=== PATIENT | male | born 1995 | race Caucasian/White ===

== ENCOUNTER 2021-06-10 07:23 | Outpatient (REF) | payer OTHER, SELFPAY ==
--- NOTE | 2021-06-10 07:33 | ECG_ITS ---
Test Reason : check qtc Blood Pressure : / mmHG Vent. Rate : 096 BPM Atrial Rate : 096 BPM P-R Int : 148 ms QRS Dur : 090 ms QT Int : 344 ms P-R-T Axes : 085 086 070 degrees QTc Int : 434 ms Normal sinus rhythm Normal ECG When compared with ECG of 03-MAR-2018 10:45, No significant change was found Referred By: Samantha Trevino Electronically Signed By:KENIA MOHR
[2021-06-10 07:50] LABS: MANUAL DIFF FLAG NO
[2021-06-10 08:54] LABS: Basophils Percent Auto 0.3 % (0-2); Eosinophils Absolute Auto 0.2 X10*3/uL (0.0-0.4); Eosinophils Percent Auto 2.7 % (0-4); Hematocrit 48.1 % (42.0-52.0); Hemoglobin 16.3 g/dl (14.0-18.0); Imm Gran Abs Auto 0.02 X10*3/uL (0.00-0.03); Imm Gran Pct Auto 0.3 % (0.0-0.4); Lymphocytes Absolute Auto 2.3 X10*3/uL (1.2-4.9); Lymphocytes Percent Auto 33.6 % (20-40); Mean Corpuscular HGB Conc 33.9 g/dl (31.0-36.0); Mean Corpuscular Hemoglobin 29.1 pg (27.0-33.0); Mean Corpuscular Volume 85.9 fL (80.0-98.0); Mean Platelet Volume 10.2 fL (9.4-12.4); Monocytes Absolute Auto 0.4 X10*3/uL (0.1-1.2); Monocytes Percent Auto 5.9 % (2-11); Neutrophils Absolute Auto 3.9 x10*3/uL (2.0-8.3); Neutrophils Percent Auto 57.2 % (45-73); Platelet Count 231 X10*3/uL (160-400); White Blood Count 6.7 X10*3/uL (4.8-10.8)
[2021-06-10 09:18] LABS: Alanine Aminotransferase 47 U/L (0-40); Albumin Level 4.7 g/dL (3.5-5.0); Alkaline Phosphatase 79 U/L (39-117); Anion Gap 10 (12-20); Aspartate Amino Transferase 23 U/L (5-37); Bilirubin Total 0.5 mg/dL (0.0-1.0); Blood Urea Nitrogen 19 mg/dL (9-16); Calcium 9.9 mg/dL (8.4-10.2); Carbon Dioxide 32 mmol/L (22-29); Chloride 103 mmol/L (96-108); Cholesterol 200 mg/dL; Estimated Glomerular Filt Rate > 60; Glucose Fasting 88 mg/dL (60-99); HDL Cholesterol 48 mg/dL; LDL Cholesterol Calculated 141 mg/dl; Potassium 4.1 mmol/L (3.3-5.1); Sodium 141 mmol/L (135-145); Total Protein 7.3 g/dL (6.5-8.0); Triglycerides 56 mg/dL
== END 2021-06-10 07:24 | disposition home or self-care (01) ==
LOC: HO.LAB 07:23
PROVIDERS: PCP Internal Medicine; Visit Provider Internal Medicine
DX: Z00.00 Encounter for general adult medical examination without abnormal findings (principal); F41.1 Generalized anxiety disorder
CPT/HCPCS: 36415; 80053; 80061; 85025; 93005

== ENCOUNTER 2021-08-07 09:08 | Outpatient (REF) | payer OTHER, SELFPAY ==
--- NOTE | ~2021-08-07 | XR_ITS ---
EXAMINATION: XR LUMBOSACRAL SPINE CLINICAL INFORMATION: Low back pain COMPARISON: None TECHNIQUE: Three views of the lumbosacral spine. FINDINGS: There are 5 nonrib-bearing lumbar vertebrae of normal height. No destructive process. No focal disc narrowing or spondylolisthesis. No vertebral compression. The SI joints and visualized sacrum are unremarkable. XR/XR lumbar spine 2-3V IMPRESSION: Unremarkable examination.
== END 2021-08-07 09:09 | disposition home or self-care (01) ==
LOC: HO.US 09:08
PROVIDERS: Visit Provider Internal Medicine
DX: M54.50 Low back pain, unspecified (principal); R74.01 Elevation of levels of liver transaminase levels
CPT/HCPCS: 72100

== ENCOUNTER 2021-08-13 08:39 | Outpatient (REF) | payer OTHER, SELFPAY ==
--- NOTE | ~2021-08-13 | US_ITS ---
EXAMINATION: US COMPLETE ABDOMEN WITH LIVER ELASTOGRAPHY CLINICAL INFORMATION: Elevated liver enzymes COMPARISON: Previous abdominal ultrasound February [address] of the abdomen and pelvis August 2015 TECHNIQUE: Real-time imaging of the abdominal viscera. Noninvasive ultrasound liver fibrosis assessment is performed using Sammie ElastPQ point quantification shear wave elastography (2D-SWE) with a C5-2 MHz transducer. Multiple elastography samples are obtained. FINDINGS: PANCREAS: Not well visualized due to bowel gas ABDOMINAL AORTA: The proximal, middle, and distal aortic segments are normal in caliber. INFERIOR VENA CAVA: Visualized portions are normal. LIVER: Normal. The liver demonstrates normal size, contour and echogenicity. No focal lesion or intrahepatic biliary duct dilatation. The right lobe measures 14 cm in length. The left lobe measures 8.6 cm in length. Portal flow is normal/hepatopedal Shear wave liver elastography median stiffness is 1.6 m/s (reference: normal median stiffness is 1.3 m/s or less). IQR/median stiffness to assess sampling precision is 0.37 (reference: good quality data set is IQR/median stiffness of 0.15 or less). GALLBLADDER: Normal. The gallbladder is physiologically distended without evidence of stones, sludge, polyps, wall thickening or pericholecystic fluid. COMMON BILE DUCT: Normal in caliber measuring 0.3 cm in diameter. RIGHT KIDNEY: Normal. No hydronephrosis. No renal calculi or focal parenchymal lesions. The kidney measures 10.8 cm in maximum dimension. LEFT KIDNEY: Normal. No hydronephrosis. No renal calculi or focal parenchymal lesions. The kidney measures 12.1 cm in maximum dimension. SPLEEN: Normal. The spleen measures 10.7 cm in maximum dimension. There is a 1 cm splenule. FREE FLUID: None. US/US abdomen comp w elastography IMPRESSION: 1. Impression: Normal-appearing liver. Limited visualization of the pancreas. 2. Liver elastography: Limited due to sampling error. REFERENCE: Society of Radiologists in Ultrasound Liver Stiffness Thresholds (2019): LIVER STIFFNESS THRESHOLDS: *Liver Stiffness equal or less than 1.3 m/s: High probability of being normal. *Liver Stiffness less than 1.7 m/s: In the absence of other known clinical signs, rules out compensated advanced chronic liver disease. *Liver Stiffness 1.7-2.1 m/s: Suggestive of compensated advanced chronic liver disease but need further test for confirmation. *Liver Stiffness over 2.1 m/s: Rules in compensated advanced chronic liver disease. *Liver Stiffness over 2.4 m/s: Suggestive of clinically significant portal hypertension. QUALITY OF DATA SET: *IQR/Median value equal or less than 0.15 implies a quality data set. *IQR/Median value over 0.15 implies a poor quality data set. SIGNIFICANT CHANGE FROM PRIOR EXAM: Significant change if liver stiffness measurement is 10% or greater from prior exam. OTHER CONSIDERATIONS: The stage of liver fibrosis may be overestimated in the setting of acute hepatitis, liver inflammation, elevated liver function tests, hepatic vascular congestion, obstructive cholestasis, non-fasting state, and infiltrative diseases such as amyloidosis and lymphoma. In some patients with NAFLD, the liver stiffness thresholds for compensated advanced chronic liver disease may be lower. In causes other than viral hepatitis and NAFLD, liver stiffness thresholds are not well established.
== END 2021-08-13 08:40 | disposition home or self-care (01) ==
LOC: HO.US 08:39
PROVIDERS: Visit Provider Internal Medicine
DX: R74.01 Elevation of levels of liver transaminase levels (principal)
CPT/HCPCS: 76705; 76981

== ENCOUNTER → 2021-09-04 07:06 | Outpatient (BNVA) | payer OTHER, SELFPAY | PROVIDERS: PCP Internal Medicine; Referring Provider Internal Medicine; Visit Provider Nurse Practitioner | DX: K21.9 Gastro-esophageal reflux disease without esophagitis (principal); R74.01 Elevation of levels of liver transaminase levels; R10.10 Upper abdominal pain, unspecified | CPT/HCPCS: 99202 ==

== ENCOUNTER 2021-09-11 10:55 | Outpatient (REF) | payer OTHER, SELFPAY ==
[2021-09-11 14:23] LABS: Alanine Aminotransferase 41 U/L (0-40); Albumin Level 4.5 g/dL (3.5-5.0); Alkaline Phosphatase 73 U/L (39-117); Anion Gap 12 (12-20); Aspartate Amino Transferase 18 U/L (5-37); Bilirubin Direct 0.3 mg/dL (0.0-0.5); Bilirubin Total 0.7 mg/dL (0.0-1.0); Blood Urea Nitrogen 15 mg/dL (9-16); Calcium 9.8 mg/dL (8.4-10.2); Carbon Dioxide 30 mmol/L (22-29); Chloride 103 mmol/L (96-108); Estimated Glomerular Filt Rate > 60; Gamma Glutamyl Transpeptidase 34 U/L (11-51); Glucose Random 94 mg/dL (60-115); Lipase 47 U/L (8-78); Potassium 4.5 mmol/L (3.3-5.1); Sodium 140 mmol/L (135-145); Total Protein 7.2 g/dL (6.5-8.0)
[2021-09-11 14:27] LABS: Amylase 75 U/L (28-100)
[2021-09-11 14:30] LABS: Total Protein Urine Random 11 mg/dL (<12)
[2021-09-11 14:33] LABS: Ferritin 78 ng/mL (20-250)
[2021-09-12 04:46] LABS: HBS Num1 1.16 mIU/mL (0-7.99); HBc Num1 0.07 S/CO (0.00-0.79); HBsAGNum1 0.19 S/CO (0.00-0.99); Hepatitis A Antibody IgM 0.21 Index (0-0.79); Hepatitis B Core Antibody Nonreactive (Nonreactive); Hepatitis B Surface Antigen Negative (Negative); ~Hepatitis A Antibody IgM Nonreactive (Nonreactive); ~Hepatitis B Surface Antibody NONREACTIVE (Nonreactive); ~Hepatitis C Antibody Nonreactive (Nonreactive)
[2021-09-13 05:12] LABS: EBV-VCA IgM Ab <36.00 U/mL
[2021-09-16 14:15] LABS: Smooth Muscle Antibody <20 U (<20)
[2021-09-16 15:42] LABS: Mitochondrial Antibodies NEGATIVE (NEGATIVE)
[2021-09-16 20:32] LABS: Gliadin Deamidated IgA Ab 2.3 U/mL; Gliadin Deamidated IgG Ab <1.0 U/mL; Transglutaminase Ab IgG <1.0 U/mL; Transglutaminase IgA <1.0 U/mL
[2021-09-16 23:52] LABS: Anti Nuclear Antibody Screen NEGATIVE (NEGATIVE)
[2021-09-17 10:21] LABS: Alpha Fetoprotein 2.8 ng/mL (<6.1)
== END 2021-09-11 10:56 | disposition home or self-care (01) ==
LOC: HO.HMGCLDS 10:55
PROVIDERS: Internal Medicine; Visit Provider Nurse Practitioner
DX: R74.01 Elevation of levels of liver transaminase levels (principal); R80.9 Proteinuria, unspecified
CPT/HCPCS: 36415; 80053; 82105; 82150; 82248; 82728; 82977; 83690; 84156; 86015; 86038; 86039; 86255; 86256; 86258; 86364; 86664; 86665; 86704; 86706; 86709; 86803; 87340

== ENCOUNTER → 2021-09-12 07:35 | Outpatient (REF) | payer OTHER, SELFPAY ==
--- NOTE | ~2021-09-12 | NM_ITS ---
EXAMINATION: NM BILIARY TRACT WITH ORAL FATTY MEAL CLINICAL INFORMATION: Upper abdominal pain. COMPARISON: No previous radionuclide biliary scan is available for comparison. Abdominal ultrasound dated 08/13/2021 is available for comparison. TECHNIQUE: Serial gamma scintillation camera images were obtained over the abdomen for a total observation period of 125 minutes following the intravenous administration of 5 mCi Tc-99m Mebrofenin. FINDINGS: There is good concentration of activity in the liver by 5 minutes post injection. Biliary activity is visualized by 10 minutes. The gallbladder is well visualized by 15 minutes. Small bowel is well visualized by 20 minutes. At 60 minutes post Mebrofenin injection, 8 ounces of Ensure-plus Brand was administered orally and an additional 60 minutes of images were obtained. There is good emptying of the gallbladder following ingestion of the fatty meal. At the end of the study there is good clearance of activity from the liver and visualization of diffuse small bowel activity. The calculated gallbladder ejection fraction is 74% (normal gallbladder ejection fraction using Ensure supplement orally is greater than 33%). NM/NM hepatobiliary wo pharm IMPRESSION: Visualization of the gallbladder is evidence of a patent cystic duct and strong evidence against the diagnosis of acute cholecystitis. The common bile duct is patent. Gallbladder emptying and ejection fraction are normal. Liver function appears normal.
== END ==
LOC: HO.NUCMED 07:35
PROVIDERS: Visit Provider Nurse Practitioner
DX: R10.10 Upper abdominal pain, unspecified (principal)
CPT/HCPCS: 78226; A9537

== ENCOUNTER → 2021-11-20 12:28 | Outpatient (BNVA) | payer OTHER, SELFPAY | PROVIDERS: PCP Internal Medicine; Visit Provider Nurse Practitioner | DX: K21.9 Gastro-esophageal reflux disease without esophagitis (principal); R74.01 Elevation of levels of liver transaminase levels | CPT/HCPCS: 99212 ==

== ENCOUNTER 2022-02-16 14:26 | Outpatient (REF) | payer OTHER, SELFPAY ==
[2022-02-16 16:44] LABS: Appearance Urine Cloudy; Color Urine Yellow; Glucose Urine UA Negative (Negative); Leukocyte Esterase Urine Negative (Negative); Nitrite Urine Negative (Negative); Urine Blood Negative (Negative); Urine Ketones Negative (Negative); Urine Protein Negative (Neg-Trace)
[2022-02-16 16:59] LABS: Syphilis Screen Nonreactive (Nonreactive)
[2022-02-17 08:21] LABS: HIV AB/AG Nonreactive (Nonreactive); HIV Num 1 0.14 S/CO (0.00-0.99)
[2022-02-17 08:37] LABS: CT PCR DETECTED (Not Detect.); NG PCR NOT DETECTED (Not Detect.)
== END 2022-02-16 14:27 | disposition home or self-care (01) ==
LOC: HO.HMGCLDS 14:26
PROVIDERS: PCP Internal Medicine; Visit Provider Internal Medicine
DX: Z20.2 Contact with and (suspected) exposure to infections with a predominantly sexual mode of transmission (principal)
CPT/HCPCS: 81003; 86780; 87389; 87491; 87591

== ENCOUNTER 2023-01-28 17:01 | Outpatient (AMB) | payer BC, SELFPAY ==
[2023-01-28 17:07] VITALS: BP 120/80; PULSE 88; O2SAT 98; BMI 28.6
--- NOTE | 2023-01-28 17:07 | A.OFFPC_ITS ---
Vital Signs 01/28/23 17:07 Height 5 ft 9 in Weight 194 lb BMI 28.6 BP 120/80 Blood Pressure Location Lt brachial Position Sitting Pulse 88 Pulse Source Pulse Oximeter Pulse Oximetry (%) 98 Oxygen Delivery Method Room Air Intake Visit Reasons: PHY-Medication Intake Note: Patient here for a physical, med review Elevators Inspector Required: No Accompanied by: Mother Allergies amoxicillin [AMOXICILLIN] Allergy (Unknown, Verified 01/28/23 17:18) HIVES cinnamon [CINNAMON] Allergy (Unknown, Verified 01/28/23 17:18) tongue numbness lorazepam [From ATIVAN] Allergy (Unknown, Verified 01/28/23 17:18) UNKNOWN Medication List - Last Reconciled 01/28/23 by Samantha Trevino MD escitalopram oxalate 10 mg PO DAILY 90 days Tobacco use date assessed: 01/28/23 Dental Screening Dental Screen Date: 01/28/23 Did you have a dental visit in the last 12 months?: Yes Did you have a dental problem in the last 6 months where you did not have access to dental care?: No Was dental information given to patient?: Patient has dentist HPI HPI Comments History of Present Illness Details This is a 28-year-old male that comes accompanied by mother for his physical exam. Complains of occasional migraines aggravated by light. [facility] Medical History Pure hypercholesterolemia Lumbar pain Proteinuria Transaminitis Physical exam PHU (generalized anxiety disorder) Surgical History Tongue atrophy History of appendectomy Family History Mother No problems noted. Father Mental health disorder Social History Housing: House Alcohol intake: former Patient Tobacco Use Status: Never used Tobacco e-Cigarette/Vaping Use: Never Used Second Hand Smoke Exposure: No service: No Current occupational status: employed Current occupational exposures/hazards: No Cognitive needs: No Hearing needs: No Vision needs: Yes Questionnaire PHQ-9 Over the last 2 weeks, how often have you been bothered by any of the following problems? 1. Little interest or pleasure in doing things: not at all 2. Feeling down, depressed, or hopeless: not at all 3. Trouble falling or staying asleep, or sleeping too much: not at all 4. Feeling tired or having little energy: not at all 5. Poor appetite or overeating: not at all 6. Feeling bad about yourself - or that you are a failure or have let yourself or your family down: not at all 7. Trouble concentrating on things, such as reading the newspaper or watching television: not at all 8. Moving or speaking so slowly that other people could have noticed. Or the opposite - being so fidgety or restless that you have been moving around a lot more than usual: not at all 9. Thoughts that you would be better off or of hurting yourself in some way: not at all Total score: 0 Depression Screening Interpretation: Negative Depression Screening Done: Yes 51962 - PHQ-9 Billing: Yes Source: Developed by Drs. Kan Rodriguez, Belinda Frank, Yomi Aguila and colleagues, with an educational lana from [employer]. Thrive Questionnaire Date Thrive assessed: 01/28/23 I am a: Patient What is your living situation today?: I have a steady place to live Within the past 12 months, did the food you bought not last and you didn't have the money to get more?: Never true Within the past 12 months, did you worry whether your food would run out before you got money to buy more?: Never true Do you have trouble paying for medicines?: No Do you have trouble getting transportation to medical appointments?: No Do you have trouble paying your heating and electricity bill?: No Do you have trouble taking care of your child, family member or friend?: No Do you have trouble with day-to-day activities such as bathing, preparing meals, shopping, managing finances, etc.?: No Are you currently unemployed and looking for a job?: No Are you interested in more education?: No Please select the resources that you would like help with: None Currently or been in a relationship where the following occur: no concerns reported AUDIT C Alcohol Use Questionnaire (AUDIT-C) 1. How often do you have a drink containing alcohol?: Never Total Score: 0 PHU-7 AMB Questionnaire PHU-7 Date PHU - 7 assessed: 01/28/23 Feeling nervous, anxious, or on edge: 0 = Not at all Not being able to stop or control worryin = Not at all Worrying too much about different things: 0 = Not at all Trouble relaxin = Not at all Being so restless that it is hard to sit still: 0 = Not at all Becoming easily annoyed or irritable: 0 = Not at all Feeling afraid as if something awful might happen: 0 = Not at all Total PHU-7 score (0-4 normal; 5-9 mild; 10-14 moderate; 15-21 severe): 0 Source: Developed by Drs. Kan Rodriguez, Belinda Frank, Yomi Aguila and colleagues, with an educational lana from [employer]. PHU-7 Assessment Billing PHU-7 Assessment Tool: PHU-7 Assessment 93480 Review of Systems Const All systems reviewed & are unremarkable except as noted in HPI and below Eyes Reports no additional complaints, Denies change in vision and Denies other visual disturbances ENT Denies change in voice, Denies lip swelling, Denies nasal discharge and Denies sinus pain Card Denies chest pain at rest, Denies chest pain with activity, Denies edema, Denies irregular heart rhythm, Denies claudication, Denies dyspnea, Denies dyspnea on exertion, Denies orthopnea, Denies paroxysmal nocturnal dyspnea and Denies slow heart rate Resp Denies cough, Denies dyspnea and Denies dyspnea on exertion GI Denies abdominal pain, Denies change in bowel habits, Denies excessive flatus, Denies nausea and Denies vomiting Denies urinary hesitancy, Denies urinary incontinence and Denies urinary urgency Musc Denies abnormal gait, Denies atrophy, Denies deformity and Denies limited range of motion Skin/Breast Denies bleeding lesions, Denies changing lesions and Denies rash Neuro Denies abnormal gait, Denies behavioral changes, Denies confusion and Denies lack of coordination Psych Denies behavioral changes and Denies confusion Aller/Immun Denies urticaria and Denies lip swelling Physical exam (Primary Care) Vital Signs: Last Vital Signs Pulse 88 01/28/23 17:07 BP 120/80 01/28/23 17:07 Pulse Ox 98 01/28/23 17:07 Oxygen Delivery Method Room Air 01/28/23 17:07 BMI result Body Mass Index 28.6 Tobacco/Smoking Status: Tobacco use Status Tobacco use date assessed 01/28/23 01/28/23 17:13 Patient Tobacco Use Status Never used Tobacco 01/28/23 17:13 e-Cigarette/Vaping Use Never Used 01/28/23 17:13 PHQ-9: PHQ-9 Score PHQ-9: Total score 0 01/28/23 17:22 Depression Screening Interpretation: Negative Thrive Assessment: Date of Thrive Assessment Date Thrive assessed 01/28/23 01/28/23 17:13 Currently or been in a relationship where the following occur: no concerns reported Const General: No confusion Orientation/consciousness: patient oriented x3 and No confusion HENMT Head: Yes normal to inspection, Yes normocephalic and Yes atraumatic Ears: external ears normal Eyes General: appearance normal, both eyes and all related structures Eyelids: Yes eyelids normal Conjunctivae: conjunctivae normal Neck Neck: Yes normal visual inspection and Yes supple Resp Effort & Inspection: normal respiratory effort Auscultation: clear to auscultation bilaterally Cardio Jugular venous distension: no JVD Rate: regular rate Rhythm: regular rhythm Heart sounds: S1 normal heart sound present and S2 normal heart sound present GI Inspection: Yes normal to inspection Palpation (GI): Soft to palpation and nontender Auscultation: normal bowel sounds Skin General skin exam: no rashes or lesions noted Neuro General: patient oriented x3, no focal motor deficits and No confusion Extrem General: Yes full ROM Psych Appearance: grossly normal Office Procedures Flu Questionnaire Does the patient have a severe egg allergy?: No Immunizations flu vacc [id number] 6mos up(PF) 60 mcg(15 mcgx4)/0.5 mL IM syringe Performing Provider: Samantha Trevino MD [facility] Documented (not given) by: AAKASH Thomas on 01/28/23 17:13 Reason Not Given: Patient Refused Assessment and Plan Assessment & Plan (1) Physical exam: Code(s): Z00.00 - Encounter for general adult medical examination without abnormal findings Plan: Repeat in a year. Orders: Orders CT NG by PCR Today A74.9 - Chlamydial infection, unspecified Influenza [id number] Immunization Today Z23 - Encounter for immunization Medications: New sumatriptan succinate do not exceed 8 doses per 24 hrs 25 mg PO Q2-4H PRN 9 tabs 2RF migraine headache 30 days Coding Level of Care Code Est Pt Prev Care 18-39y(44357) Diagnoses Physical exam Z00.00 Additional Codes PHU-7 Assessment Billing - PHU-7 Assessment Tool: PHU-7 Assessment 08114 ( [id number]) Time Spent (min) 31
== END 2023-01-28 17:28 | disposition home or self-care (01) ==
LOC: HO.HMGH 17:01
PROVIDERS: PCP Internal Medicine; Visit Provider Internal Medicine
DX: Z00.00 Encounter for general adult medical examination without abnormal findings (principal)
CPT/HCPCS: 99395

== ENCOUNTER 2023-01-28 17:22 | Outpatient (REF) | payer BC, SELFPAY ==
[2023-01-29 05:10] LABS: CT PCR NOT DETECTED (Not Detect.); NG PCR NOT DETECTED (Not Detect.)
== END 2023-01-28 17:23 | disposition home or self-care (01) ==
LOC: HO.LAB 17:22
PROVIDERS: Visit Provider Internal Medicine
DX: A74.9 Chlamydial infection, unspecified (principal); Z20.2 Contact with and (suspected) exposure to infections with a predominantly sexual mode of transmission
CPT/HCPCS: 0353U

== ENCOUNTER 2023-07-27 08:02 | Outpatient (AMB) | payer BC, SELFPAY ==
[2023-07-27 08:17] VITALS: BP 130/80; PULSE 86; TEMP 36.6; O2SAT 99
--- NOTE | 2023-07-27 08:17 | AM.OFFWIN_ITS ---
Intake Vital Signs 07/27/23 08:17 Height 5 ft 9 in BP 130/80 Blood Pressure Location Lt brachial Position Sitting Pulse 86 Pulse Source Pulse Oximeter Temp 97.8 F Temp Source Oral Pulse Oximetry (%) 99 Oxygen Delivery Method Room Air Intake Visit Reasons: EP LT Injury Intake Note: pt is here for left foot swelling, unsure of any injury. He states he worked all day yesterday and when he took his boot off after work it was very swollen and pain to push down Patient Tobacco Use Status: Never used Tobacco Allergies amoxicillin [AMOXICILLIN] Allergy (Unknown, Verified 07/27/23 09:00) HIVES cinnamon [CINNAMON] Allergy (Unknown, Verified 07/27/23 09:00) tongue numbness lorazepam [From ATIVAN] Allergy (Unknown, Verified 07/27/23 09:00) UNKNOWN Medication List - Last Reconciled 07/27/23 by EDITH Martel escitalopram oxalate 10 mg PO DAILY 90 days meloxicam 15 mg PO DAILY sumatriptan succinate 25 mg PO Q2-4H PRN 30 days Do you need a note to return to daycare/school/sports/work: Yes HPI HPI Comments History of Present Illness Details Patient is a 28-year-old male in today for sick visit. He states that 1 day prior to visit he developed midfoot pain on his left foot. 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 Denies any trauma to the area. Utilized ice and rest overnight with little effect. Has not tried any medication for relief. Has tried using an ankle brace that seem to make the problem worse. Patient has scant amount of edema to left metatarsals. Pulses +2. No erythema. Patient has full range of motion. Denies tingling or numbness. Able to ambulate on affected limb with a limp. No history of this happening before. [facility] Medical History Pure hypercholesterolemia Lumbar pain Proteinuria Transaminitis Physical exam PHU (generalized anxiety disorder) Surgical History Tongue atrophy History of appendectomy Family History Mother No problems noted. Father Mental health disorder Social History Housing: House Alcohol intake: former Patient Tobacco Use Status: Never used Tobacco e-Cigarette/Vaping Use: Never Used Second Hand Smoke Exposure: No service: No Current occupational status: employed Current occupational exposures/hazards: No Cognitive needs: No Hearing needs: No Vision needs: Yes Review of Systems Const All systems reviewed & are unremarkable except as noted in HPI and below Physical Exam Vital Signs: Last Vital Signs Temp 97.8 F 07/27/23 08:17 Pulse 86 07/27/23 08:17 BP 130/80 07/27/23 08:17 Pulse Ox 99 07/27/23 08:17 Oxygen Delivery Method Room Air 07/27/23 08:17 Vital signs reviewed stable. Const Other: Appearance: Alert.? Oriented X3.? No acute distress.? Head: Normocephalic, atraumatic, no step-offs or deformities CVS: Normal heart rate and rhythm.? Pulses normal.? Respiratory: No respiratory distress.? Breath sounds normal.? Skin: Skin warm and dry.? Normal skin color.? Normal skin turgor.? Extremities: +edema to left foot, metatarsals. Full ROM. Neuro: Oriented X 3.? No motor deficit.? No sensory deficit. CN 2-12 intact Assessment & Plan Assessment & Plan (1) Sprain of left foot: Comment: Attained x-ray in office. Initial read does not look like fracture. Will give patient crutches. Will give patient meloxicam. Patient instructed to rest the affected limb and apply ice. Code(s): S93.602A - Unspecified sprain of left foot, initial encounter Qualifiers: Encounter type: initial encounter Qualified Code(s): S93.602A - Unspecified sprain of left foot, initial encounter Plan: Take your medications as prescribed. If you were prescribed antibiotics today, it is important that you take your medication to their entirety, do not skip any doses, do not finish them early. Follow-up with your primary care provider this week. Return to the emergency department with new or worsening symptoms. Such as fevers, chills, chest pain, shortness of breath, nausea, vomiting, dizziness, headache, vision changes, lethargy In case of emergency call 911 Plan Follow-up with PCP. Orders: Orders XR foot LT min 3V Today M79.672 - Pain in left foot Medications: New meloxicam Do not combine with other NSAIDS. 15 mg PO DAILY 14 tabs 0RF Refilled sumatriptan succinate do not exceed 8 doses per 24 hrs 25 mg PO Q2-4H 30 days PRN 9 tabs 2RF migraine headache Coding Level of Care Code Est Pt Level 3 (43311) Diagnoses Sprain of left foot, initial encounter S93.602A Encounter type: initial encounter Time Spent (min) 25
== END 2023-07-27 09:14 | disposition home or self-care (01) ==
PROVIDERS: PCP Internal Medicine; Visit Provider Nurse Practitioner Primary Care
DX: M79.672 Pain in left foot (principal)
CPT/HCPCS: 99213

== ENCOUNTER 2023-07-27 08:25 | Outpatient (REF) | payer BC, SELFPAY ==
--- NOTE | ~2023-07-27 | XR_ITS ---
EXAMINATION: XR FOOT, LEFT CLINICAL INFORMATION: Left foot pain. COMPARISON: None available. TECHNIQUE: 3 views of the left foot. FINDINGS: The bones and soft tissues are normal. No fracture. Alignment is anatomic. Joint spaces are maintained. No radiopaque foreign body. XR/XR foot LT min 3V IMPRESSION: Normal left foot. No evidence of fracture or malalignment.
== END 2023-07-27 08:26 | disposition home or self-care (01) ==
LOC: HO.HMGCX 08:25
PROVIDERS: PCP Internal Medicine; Visit Provider Nurse Practitioner Primary Care
DX: M79.672 Pain in left foot (principal)
CPT/HCPCS: 73630

== ENCOUNTER 2023-08-19 10:04 | Outpatient (AMB) | payer BC, SELFPAY ==
[2023-08-19 10:20] VITALS: BMI 28.6
--- NOTE | 2023-08-19 10:20 | MHC.OFFVIS ---
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 States pain is mainly on top pf his foot by his 1st and 2nd MT and started about approx at the ending of june.. States he feels pain when walking and radiating pain to his ankle. Seen at urgent care where he was told he had a possible sprain and was given crutches. NO injury he can recall. Patient referred by her PCP Samantha Reyez. 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 Here with mom. No injury that he could think of. Works out, 4 days/week; calf raises without weights; squats without weights. Has not played sports. Has a one year at home. Walking and standing a lot at work, 10 hours/day. Points to dorsal foot, left, from big toe and 2nd digit to ankle. Worse with plantarflexion or pointing toes. Not bothered with dorsiflexion, eversion and inversion. Noted swelling but maybe improved recently. No numbness. Can bear weight on it, no crutches today, but limps. Just compression sock but it put pressure on left foot anteriorly. Still working, full duty. He was on light duty for 3 days. But then he had to cover the [employer] right after. Family history of gout and RA (grandfatether maternal side). History of weak ankle right. Denies any other joint pain. [facility] Medical History Pure hypercholesterolemia Lumbar pain Proteinuria Transaminitis Physical exam PHU (generalized anxiety disorder) Surgical History Tongue atrophy History of appendectomy Family History Mother No problems noted. Father Mental health disorder Social History Housing: House Alcohol intake: former Patient Tobacco Use Status: Never used Tobacco e-Cigarette/Vaping Use: Never Used Second Hand Smoke Exposure: No service: No Current occupational status: employed Current occupation: security/ rt hand Current occupational exposures/hazards: No Cognitive needs: No Hearing needs: No Vision needs: Yes Review of Systems Const All systems reviewed & are unremarkable except as noted in HPI and below Physical Exam Vital Signs: BMI result Body Mass Index 28.6 Constitutional: Patient appears to be in no acute distress, well nourished and well developed. MSK: Nontender Achillis, plantar fascia, medial or lateral malleoli. No ankle instability. No calf tenderness. No redness or swelling noted. Tender distally left tibialis anterior tendon, and toe extensors 1st and 2nd toes. Despite pain, can stand on toes and heels. Plantar flexion worsens the pain. Dorsiflexion, eversion and inversion are full. Strength is 5/5 in all muscle groups tested. No increased tone noted. Neurological: Neurologic examination of the upper and lower extremities was nonfocal with intact sensation, muscle stretch reflexes and without focal motor deficits . Mo?s negative bilaterally. Babinski was down going bilaterally. Clonus was negative. Gait is non-antalgic without loss of balance, on short distances. Results Reviewed Results Reviewed: I independently reviewed the results of the following: X-ray left foot normal. I reviewed records from the following: PCP note Assessment & Plan Assessment & Plan (1) Extensor tendonitis of foot: Code(s): M77.8 - Other enthesopathies, not elsewhere classified Category: Medical Plan Suspect extensor tendonitis on left foot. No signs of any other ankle sprain or instability. Ice TID and elevate as much as he can. A boot would not be indicated given no ankle instability. A lace up ankle brace may just impinge dorsally. Could try tom wrap if gets swollen. Mom knows how to do an tom wrap. Trial diclofenac gel up to QID. Instructions, side effects and precautions discussed. Start PT with plan to [facility]on to [facility]. Would recommend sedentary/desk job restrictions for 6 weeks. Foot needs rest and would not heal if he is standing/walking at work all the time. Assessment and plan discussed with patient, and patient was agreeable. All questions were answered thoroughly. Follow-up in 6 weeks. Mary Mauro MD, HERMINIA Board Certified, [place] [employer] and Rehabilitation (ABPMR) Board Certified, [place] Board of Electrodiagnostic Medicine (ABEM) Orders: Orders PT Evaluation and Treatment Today M77.8 - Other enthesopathies, not elsewhere classified Coding Level of Care Code New Pt Level 4 (71494) Diagnoses Extensor tendonitis of foot M77.8
== END 2023-08-19 10:55 | disposition home or self-care (01) ==
PROVIDERS: PCP Internal Medicine; Visit Provider Physical Medicine & Rehabilitation
DX: M77.8 Other enthesopathies, not elsewhere classified (principal)
CPT/HCPCS: 99204

== ENCOUNTER → 2023-08-19 10:04 | Outpatient (BNVA) | payer BC, SELFPAY | PROVIDERS: PCP Internal Medicine; Visit Provider Physical Medicine & Rehabilitation ==

== ENCOUNTER 2023-10-07 08:57 | Emergency (ER) | payer OTHER, SELFPAY ==
[2023-10-07 08:59] VITALS: BP 128/83; PULSE 94; RESP 16; TEMP 36.3; O2SAT 97; BMI 26.6
--- NOTE | 2023-10-07 09:25 | ED.EXTPRO ---
HPI - Extremity Problem General Chief complaint: Extremity Injury, Upper Stated complaint: Swelling L thumb Time Seen by Provider: 10/07/23 09:08 Source: patient Mode of arrival: ambulatory Limitations: no limitations History of Present Illness ED Provider: ARISTEO ARIAS PA-C HPI Narrative: 28 year old male presents to the ED today for evaluation of swelling/pain to left thumb x1 day. Reports yesterday began noticing swelling/redness along the cuticle of his left thumb. Since this time, pain has been worsening and he now notes a pus pocket along the cuticle. The area has not been draining. He has been applying warm compresses at home without relief, prompting him to come to the ED today. Admits to biting his nails. Denies fever, chills. Denies decreased range of motion of the thumb. Denies injury or trauma to the thumb. Related Data Previous Rx's ?Medication ?Instructions ?Recorded escitalopram oxalate 10 mg tablet 10 mg PO DAILY 90 days #90 tabs 06/01/23 bacitracin zinc 500 unit/gram 1 appl topical DAILY #14 grams 10/07/23 topical ointment (Antibiotic (bacitracin zinc)) doxycycline monohydrate 100 mg 100 mg PO BID 7 days #14 tabs 10/07/23 tablet Allergies Allergy/AdvReac Type Severity Reaction Status Date / Time amoxicillin [AMOXICILLIN] Allergy Unknown HIVES Verified 10/07/23 09:05 cinnamon [CINNAMON] Allergy Unknown tongue Verified 10/07/23 09:05 numbness lorazepam [From ATIVAN] Allergy Unknown UNKNOWN Verified 10/07/23 09:05 Review of Systems Review of Systems: Constitutional: No fever, chills, fatigue, night sweats, weight changes ENT/Mouth: No ear pain, hearing loss, nasal congestion, sinus pain, rhinorrhea, sore throat Eyes: No eye pain, swelling, redness, vision changes, discharge Cardio: No chest pain, palpitations, HOOPER, orthopnea, peripheral edema Pulm: No SOB, cough, sputum, wheezing, dyspnea, hemoptysis GI: No nausea, vomiting, hematemesis, abdominal pain, diarrhea, constipation, hematochezia, melena : No irregular bleeding, dysuria, frequency, urgency, hesitancy, hematuria, flank pain, urinary flow changes, urinary incontinence or retention MSK: No back pain, neck pain, joint pain, myalgias Skin: No lesions, rashes, +swelling/pain to left thumb Neuro: No weakness, numbness, paresthesias, LOC, dizziness, headache Psych: No anxiety/panic, depression, SI/HI, AH/VH All other systems reviewed and are negative. [facility] Past Medical History Attestation statement: The following information was validated with the patient. Source: old records reviewed and nursing notes reviewed Medical History Pure hypercholesterolemia Lumbar pain Proteinuria Transaminitis Physical exam PHU (generalized anxiety disorder) Surgical History Tongue atrophy History of appendectomy Family History Family History Mother No problems noted. Father Mental health disorder Social History Social History Housing: House Alcohol intake: former Patient Tobacco Use Status: Never used Tobacco e-Cigarette/Vaping Use: Never Used Second Hand Smoke Exposure: No Advance Directives: No Advance Directives Information Provided: Yes service: No Current occupational status: employed Current occupation: security/ rt hand Current occupational exposures/hazards: No Cognitive needs: No Hearing needs: No Vision needs: Yes Physical Exam Vital Signs: Vital Signs: Last Vital Signs Temp 97.4 F 10/07/23 08:59 Pulse 94 10/07/23 08:59 Resp 16 10/07/23 08:59 BP 128/83 10/07/23 08:59 Pulse Ox 97 10/07/23 08:59 O2 Del Method Room Air 10/07/23 08:59 BMI result Body Mass Index 26.6 Vital signs stable, afebrile Const: General: cooperative, healthy appearing, comfortable and no acute distress Orientation/consciousness: patient oriented x3 Limitations: no limitations HEENT: Head: Yes normal to inspection, Yes No palpable skull fracture present, Yes normocephalic and Yes atraumatic Eyes: General: appearance normal, both eyes and all related structures Neck: Neck: Yes normal visual inspection Resp: Effort & Inspection: normal respiratory effort and able to speak in complete sentences Auscultation: clear to auscultation bilaterally Cardio: Rate: regular rate Rhythm: regular rhythm Skin: Other: See below Neuro: General: patient oriented x3 and gait normal Extrem: Other: + noted erythema/ swelling to the medial aspect of left thumb nail. There is noted pus collection without active drainage. No streaking. Exquisitely tender to palpation. Full ROM intact to entire left thumb. Circus Supervisor strength intact. Kwltzl-[id number] opposition intact. 2+ radial/ulnar pulse intact. Course Course Course Narrative: 1010-- Paronychia to left thumb I&D'd successfully. Patient with allergy to penicillin. Doxy sent to pharmacy along with bacitrain. Cultures sent to lab. I advised patient we will contact him if antibiotics need to be adjusted. Patient has remained stable throughout ED visit today. Discussed worrisome signs and symptoms and when to return to the ED. All questions answered at this time. Patient is agreeable with disposition and stable for discharge. Medications Administered Discontinued Medications Generic Name Dose Route Start Last Admin Trade Name Freq PRN Reason Stop Dose Admin Bacitracin 1 appl 10/07/23 09:36 10/07/23 09:40 Bacitracin Oint 0.9 Gm Packet TOPICAL 10/07/23 09:37 1 appl ONCE ONE Administration Protocol Lidocaine HCl 5 ml 10/07/23 09:30 10/07/23 09:40 Lidocaine Hcl 1 % Mpf 5 Ml Vial INFILTRATI 10/07/23 09:31 5 ml ONCE ONE Administration Medical Decision Making Medical Decision Making [facility] Narrative: 28 year old male presents to the ED today for evaluation of swelling/pain to left thumb x1 day. VSS. Afebrile. He is nontoxic appearing and in NAD. On exam, there is noted erythema/ swelling to the medial aspect of left thumb nail. There is noted pus collection without active drainage. No streaking. Exquisitely tender to palpation. Full ROM intact to entire left thumb. Circus Supervisor strength intact. Mkapen-zz-uzlae opposition intact. 2+ radial/ulnar pulse intact. Differential diagnosis includes paronychia, cellulitis. Unlikely gout, pseudogout, septic joint, lyme arthritis, fracture, dislocation, oseto. Plan for I&D, routine culture swab, and disposition. Differential Diagnosis Differential Diagnoses: The differential diagnosis associated with the presentation includes as above. Admission/Observation Not indicated External Record Review External record reviewed: Inpatient record, Office record, Outpatient record, Prior outpatient labs, Prior outpatient radiology, Primary care record and Outside ED record Prescription Management I considered prescription management with: Pain Medication (Tylenol, ibuprofen) and Antibiotic (Doxycycline, bacitracin) Social Determinants Patient?s care significantly limited by Social Determinants of Health including: Other Social Determinant of Health Procedures Abscess I/D Site: hand (thumb, ) Side (if applicable): left Local Anesthetic: lidocaine 1% Amount of anesthesia used (mL): 5 Technique: incised with blade Amount of fluid expressed (mL): 1 Sent for culture/gram staining?: Yes Irrigation: Yes Packing used?: none Nerve Block Nerve Block 1: Time out performed: Yes Local Anesthetic: lidocaine 1% Amount of anesthesia used (mL): 5 Side: left Nerve Blocks: digital Procedure Successful: Yes Patient Tolerated Procedure: well Complications: none Critical Care Time Critical Care Time Critical Care Time: No Discharge Plan Discharge Clinical Impression: Acute paronychia of left thumb Patient Disposition: Home, Self-Care Instructions: Paronychia (ED) Additional Instructions: You were seen in the ED today for left thumb infection. The area was drained. Doxycycline has been sent to your pharmacy. This is an antibiotic. Take this as prescribed for 5 days to treat infection. Do not stop taking this early or skip any doses as this may cause infection to worsen Cultures were sent to the lab. You will receive a call from [facility] if the antibiotic needs to be changed. Apply warm compresses to the area to allow for continued drainage/ healing. You may apply bacitracin or neosporin to the area as needed. Follow up with PCP as needed. Return with new or worsening symptoms. Prescriptions: New doxycycline monohydrate 100 mg tablet 100 mg PO BID 7 Days Qty: 14 0RF bacitracin zinc [Antibiotic (bacitracin zinc)] 500 unit/gram ointment 1 appl topical DAILY Qty: 14 0RF No Action escitalopram oxalate 10 mg tablet 10 mg PO DAILY 90 Days Qty: 90 1RF Referrals: Samantha Howard MD [Primary Care Provider] - Stand Alone Forms: Work/School Release Print Language: Sami
[2023-10-07] MEDS: Lidocaine HCl 1 % MPF 5 ML VIAL INFILTRATI (09:40)
[2023-10-07] MEDS: Bacitracin Oint 0.9 GM PACKET 1 APPL TOPICAL (09:40)
--- NOTE | 2023-10-07 09:41 | PC.NURSE ---
provider to administer medications
--- NOTE | 2023-10-07 10:21 | PC.NURSE ---
culture obtained by provider, sent to lab .
[2023-10-07 10:22] VITALS: BP 121/76; PULSE 88; RESP 16; TEMP 36.2; O2SAT 97
== END 2023-10-07 10:22 | disposition home or self-care (01) ==
PROVIDERS: Emergency Provider Emergency Medicine; PCP Internal Medicine
DX: L03.012 Cellulitis of left finger (principal)
CPT/HCPCS: 10060; 87070; 87077; 87186; 87205; 99282; 99283

== ENCOUNTER 2024-02-01 16:19 | Outpatient (AMB) | payer OTHER, SELFPAY ==
[2024-02-01 16:31] VITALS: BP 120/84; PULSE 88; O2SAT 98; BMI 29.6
--- NOTE | 2024-02-01 16:31 | A.OFFPC_ITS ---
Vital Signs 02/01/24 16:31 Height 5 ft 9 in Weight 200 lb 4 oz BMI 29.6 BP 120/84 Blood Pressure Location Lt brachial Position Sitting Pulse 88 Pulse Source Pulse Oximeter Pulse Oximetry (%) 98 Oxygen Delivery Method Room Air Intake Visit Reasons: PE Intake Note: Patient is here today for a physical. 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 Accompanied by: Self / Same As Patient Allergies amoxicillin [AMOXICILLIN] Allergy (Unknown, Verified 02/01/24 16:42) HIVES cinnamon [CINNAMON] Allergy (Unknown, Verified 02/01/24 16:42) tongue numbness lorazepam [From ATIVAN] Allergy (Unknown, Verified 02/01/24 16:42) UNKNOWN Medication List - Last Reconciled 02/01/24 by Samantha Trevino MD escitalopram oxalate 10 mg PO DAILY 90 days Tobacco use date assessed: 02/01/24 Dental Screening Dental Screen Date: 02/01/24 Did you have a dental visit in the last 12 months?: Yes Did you have a dental problem in the last 6 months where you did not have access to dental care?: No Was dental information given to patient?: Patient has dentist HPI HPI Comments History of Present Illness Details This is 29-year-old male that comes accompanied by mother for his physical exam. No chest pain or shortness on breath. No family history of colon cancer. Complains heartburn that happens occasionally. [facility] Medical History Pure hypercholesterolemia Lumbar pain Proteinuria Transaminitis Physical exam PHU (generalized anxiety disorder) Surgical History Tongue atrophy History of appendectomy Family History (Updated 02/01/24 @ 16:47 by Samantha Trevino MD) Mother No problems noted. Father Mental health disorder Anxiety Social History Housing: House Alcohol intake: former Patient Tobacco Use Status: Never used Tobacco e-Cigarette/Vaping Use: Never Used Second Hand Smoke Exposure: No service: No Current occupational status: employed Current occupation: security/ rt hand Current occupational exposures/hazards: No Cognitive needs: No Hearing needs: No Vision needs: Yes Questionnaire PHQ-9 Over the last 2 weeks, how often have you been bothered by any of the following problems? 1. Little interest or pleasure in doing things: not at all 2. Feeling down, depressed, or hopeless: not at all 3. Trouble falling or staying asleep, or sleeping too much: not at all 4. Feeling tired or having little energy: not at all 5. Poor appetite or overeating: not at all 6. Feeling bad about yourself - or that you are a failure or have let yourself or your family down: not at all 7. Trouble concentrating on things, such as reading the newspaper or watching television: not at all 8. Moving or speaking so slowly that other people could have noticed. Or the op posite - being so fidgety or restless that you have been moving around a lot more than usual: not at all 9. Thoughts that you would be better off or of hurting yourself in some way: not at all Total score: 0 Depression Screening Interpretation: Negative Depression Screening Done: Yes 92030 - PHQ-9 Billing: Yes Source: Developed by Drs. Kan Rodriguez, Belinda Frank, Yomi Aguila and colleagues, with an educational lana from [employer]. Thrive Questionnaire Date Thrive assessed: 02/01/24 I am a: Patient What is your living situation today?: I have a steady place to live Within the past 12 months, did the food you bought not last and you didn't have the money to get more?: Never true Within the past 12 months, did you worry whether your food would run out before you got money to buy more?: Never true Do you have trouble paying for medicines?: No Do you have trouble getting transportation to medical appointments?: No Do you have trouble paying your heating and electricity bill?: No Do you have trouble taking care of your child, family member or friend?: No Do you have trouble with day-to-day activities such as bathing, preparing meals, shopping, managing finances, etc.?: No Are you currently unemployed and looking for a job?: No Are you interested in more education?: No Please select the resources that you would like help with: None Currently or been in a relationship where the following occur: No concerns reported THRIVE Score: 0 AUDIT C Alcohol Use Questionnaire (AUDIT-C) 1. How often do you have a drink containing alcohol?: Never Total Score: 0 Score Reviewed/Action Taken: No PHU-7 AMB Questionnaire PHU-7 Date PHU - 7 assessed: 01/28/23 Feeling nervous, anxious, or on edge: 0 = Not at all Not being able to stop or control worryin = Not at all Worrying too much about different things: 0 = Not at all Trouble relaxin = Not at all Being so restless that it is hard to sit still: 0 = Not at all Becoming easily annoyed or irritable: 0 = Not at all Feeling afraid as if something awful might happen: 0 = Not at all Total PHU-7 score (0-4 normal; 5-9 mild; 10-14 moderate; 15-21 severe): 0 Source: Developed by Drs. Kan Rodriguez, Belinda Frank, Yomi Aguila and colleagues, with an educational lana from [employer]. PHU-7 Assessment Billing PHU-7 Assessment Tool: PHU-7 Assessment 91140 Review of Systems Const All systems reviewed & are unremarkable except as noted in HPI and below Card Denies chest pain at rest, Denies chest pain with activity, Denies edema, Denies irregular heart rhythm, Denies claudication, Denies dyspnea, Denies dyspnea on exertion, Denies orthopnea, Denies paroxysmal nocturnal dyspnea and Denies slow heart rate Resp Denies cough, Denies dyspnea and Denies dyspnea on exertion GI Reports heartburn Musc Denies abnormal gait, Denies atrophy, Denies deformity and Denies limited range of motion Neuro Denies abnormal gait, Denies behavioral changes and Denies lack of coordination Psych Denies behavioral changes Physical exam (Primary Care) Vital Signs: Last Vital Signs Pulse 88 02/01/24 16:31 BP 120/84 02/01/24 16:31 Pulse Ox 98 02/01/24 16:31 Oxygen Delivery Method Room Air 02/01/24 16:31 BMI result Body Mass Index 29.6 Tobacco/Smoking Status: Tobacco use Status Tobacco use date assessed 02/01/24 02/01/24 16:32 Patient Tobacco Use Status Never used Tobacco 02/01/24 16:32 e-Cigarette/Vaping Use Never Used 02/01/24 16:32 PHQ-9: PHQ-9 Score PHQ-9: Total score 0 02/01/24 16:38 Depression Screening Interpretation: Negative Thrive Assessment: Date of Thrive Assessment Date Thrive assessed 02/01/24 02/01/24 16:35 Currently or been in a relationship where the following occur: No concerns reported [facility] Head: Yes normal to inspection, Yes normocephalic and Yes atraumatic Ears: external ears normal Eyes General: appearance normal, both eyes and all related structures Eyelids: Yes eyelids normal Conjunctivae: conjunctivae normal Neck Neck: Yes normal visual inspection and Yes supple Resp Effort & Inspection: normal respiratory effort Auscultation: clear to auscultation bilaterally Cardio Jugular venous distension: no JVD Rate: regular rate Rhythm: regular rhythm Heart sounds: S1 normal heart sound present and S2 normal heart sound present GI Inspection: Yes normal to inspection Palpation (GI): Soft to palpation and nontender Auscultation: normal bowel sounds Skin General skin exam: no rashes or lesions noted Neuro General: no focal motor deficits Extrem General: Yes full ROM Psych Appearance: grossly normal Office Procedures Flu Questionnaire Does the patient have a severe egg allergy?: No Does the patient have severe life threatening allergies?: No Does the patient have a fever or illness today?: No Has the patient ever had Guillain-[place] Syndrome?: No Has the patient ever had any past reaction to a flu shot?: No Immunizations Fluarix Triv [id number] (PF) 45 mcg (15 mcg x 3)/0.5 mL IM syringe Performing Provider: Samantha Trevino MD [facility] Documented (not given) by: KELVIN Taylor on 02/01/24 16:34 Reason Not Given: Patient Refused Coding Level of Care Code Est Pt Prev Care 18-39y(75580) Diagnoses Physical exam Z00.00 Additional Codes PHU-7 Assessment Billing - PHU-7 Assessment Tool: PHU-7 Assessment 63526 ([id number]) Time Spent (min) 30 Assessment & Plan Assessment & Plan (1) Physical exam: Code(s): Z00.00 - Encounter for general adult medical examination without abnormal findings Category: Medical Plan: Repeat in a year. Orders: Orders Influenza [id number] Immunization Today Z23 - Encounter for immunization Medications: New omeprazole 20 mg PO DAILY 90 days 90 caps 3RF Refilled escitalopram oxalate 10 mg PO DAILY 90 days 90 tabs 1RF F41.1 - Generalized anxiety disorder
== END 2024-02-01 16:55 | disposition home or self-care (01) ==
PROVIDERS: PCP Internal Medicine; Visit Provider Internal Medicine
DX: Z23 Encounter for immunization (principal); Z00.00 Encounter for general adult medical examination without abnormal findings

== ENCOUNTER → 2024-02-01 16:19 | Outpatient (BNVA) | payer OTHER, SELFPAY | PROVIDERS: PCP Internal Medicine; Visit Provider Internal Medicine | DX: Z00.00 Encounter for general adult medical examination without abnormal findings (principal); Z28.21 Immunization not carried out because of patient refusal | CPT/HCPCS: 90471; 96127 ==

== ENCOUNTER 2024-06-26 08:04 | Outpatient (AMB) | payer OTHER, SELFPAY ==
--- NOTE | 2024-06-26 08:06 | AM.OFFWIN_ITS ---
Intake Vital Signs 06/26/24 08:07 Weight 207 lb BP 124/90 H Blood Pressure Location Lt brachial Position Sitting Pulse 101 H Pulse Source Pulse Oximeter Pulse Oximetry (%) 97 Oxygen Delivery Method Room Air Intake Visit Reasons: EP Rt foot pain Intake Note: Patient here for right foot pain that has been present for about 1 month. Patient Tobacco Use Status: Never used Tobacco Allergies amoxicillin [AMOXICILLIN] Allergy (Unknown, Verified 06/26/24 08:07) HIVES cinnamon [CINNAMON] Allergy (Unknown, Verified 06/26/24 08:07) tongue numbness lorazepam [From ATIVAN] Allergy (Unknown, Verified 06/26/24 08:07) UNKNOWN Do you need a note to return to daycare/school/sports/work: Yes HPI HPI Comments History of Present Illness Details 29 y/o male patient who presents to the walk in clinic with c/o right foot pain x 1 month. Reports that pain is located at the bottom of his right Heel. Pain worse with prolonged standing and walking. Pain also worse when he wakes up in the morning. He has tried Ice/Heat and rest with minimal relief. He had similar Problem on his left foot last year. He did PT with good symptom relief. [facility] Medical History Pure hypercholesterolemia Lumbar pain Proteinuria Transaminitis Physical exam PHU (generalized anxiety disorder) Surgical History Tongue atrophy History of appendectomy Family History (Updated 02/01/24 @ 16:47 by Samantha Trevino MD) Mother No problems noted. Father Mental health disorder Anxiety Social History Housing: House Alcohol intake: former Patient Tobacco Use Status: Never used Tobacco e-Cigarette/Vaping Use: Never Used Second Hand Smoke Exposure: No service: No Current occupational status: employed Current occupation: security/ rt hand Current occupational exposures/hazards: No Cognitive needs: No Hearing needs: No Vision needs: Yes Review of Systems Const All systems reviewed & are unremarkable except as noted in HPI and below Physical Exam Vital Signs: Last Vital Signs Pulse 101 H 06/26/24 08:07 BP 124/90 H 06/26/24 08:07 Pulse Ox 97 03/10/25 08:07 Oxygen Delivery Method Room Air 06/26/24 08:07 Const General: cooperative and no acute distress Nutritional Appearance: overweight Orientation/consciousness: patient oriented x3 Neuro General: patient oriented x3, gait normal and moves all extremities Extrem Right lower extremity: full ROM and foot Details: normal capillary refill, normal to inspection, tenderness Location: of the plantar foot, toes with normal ROM and no edema; no ecchymosis, no crepitus and no foreign bodies Psych Speech and movement: Normal speech and movement present Assessment & Plan Assessment & Plan (1) Plantar fasciitis: Code(s): M72.2 - Plantar fascial fibromatosis Plan: NSAIDs for pain relief Ice/Hot Rest and wear comfortable shoes at work. Ordered Physical Therapy. Orders: Orders PT Evaluation and Treatment Today M72.2 - Plantar fascial fibromatosis Coding Level of Care Code Est Pt Level 4 (34167) Diagnoses Plantar fasciitis M72.2 Time Spent (min) 20
[2024-06-26 08:07] VITALS: BP 124/90; PULSE 101; O2SAT 97
== END 2024-06-26 09:09 | disposition home or self-care (01) ==
PROVIDERS: PCP Internal Medicine; Visit Provider Nurse Practitioner Family
DX: M72.2 Plantar fascial fibromatosis (principal)

== ENCOUNTER → 2024-06-26 08:04 | Outpatient (BNVA) | payer OTHER, SELFPAY | PROVIDERS: PCP Internal Medicine; Visit Provider Nurse Practitioner Family ==

== ENCOUNTER 2024-08-22 14:56 | Emergency (ER) | payer OTHER, SELFPAY ==
--- NOTE | ~2024-08-22 | XR_ITS ---
EXAMINATION: XR SACRUM AND COCCYX CLINICAL INFORMATION: pain in right lower back COMPARISON: None available. TECHNIQUE: 2 views of the sacrum and one view of the coccyx were obtained. FINDINGS: There are no fractures. No bone, joint or soft tissue abnormality is demonstrated. XR/XR sacrum coccyx min 2V IMPRESSION: Normal sacrum, SI joints, and coccyx. Electronically signed by: Jordan Rocha MD 08/22/2024 03:39 PM EDT
--- NOTE | ~2024-08-22 | XR_ITS ---
EXAMINATION: XR LUMBOSACRAL SPINE CLINICAL INFORMATION: pain post trampoline park COMPARISON: 08/07/2021. TECHNIQUE: Three views of the lumbosacral spine. FINDINGS: There is a minimal levoconvex scoliosis. There is mild straightening of the normal lordosis. There is no fracture, compression deformity, or suspicious bone lesion. There is no subluxation. Disc spaces are preserved at all levels. Facets are normally aligned. No significant facet arthrosis. The sacrum appears intact. The SI joints appear normal. Normal-appearing soft tissues. XR/XR lumbar spine 2-3V IMPRESSION: Essentially normal radiographs of the lumbosacral spine. Electronically signed by: Jordan Rocha MD 08/22/2024 03:38 PM EDT
[2024-08-22 15:06] VITALS: BP 131/81; PULSE 103; RESP 18; TEMP 37.1; O2SAT 100; BMI 30.8
--- NOTE | 2024-08-22 15:23 | ED_ITS ---
HPI - General Adult General Chief complaint: Back Pain/Injury Stated complaint: Lower R back pain Time Seen by Provider: 08/22/24 15:13 Source: patient Mode of arrival: ambulatory Limitations: no limitations History of Present Illness ED Provider: Genaro Phillip HPI narrative: 29 yold male with pmh of GERD, STD, highcholesterol, plantar fascitits presents to the ED for low back pain since going on trampoline and jumping with daughter on trampoline. patient denies any abdominal pain, nuasea, vomittgin, flank pain, fever, chills, or any other concerning symptoms. Related Data Previous Rx's ?Medication ?Instructions ?Recorded omeprazole 20 mg tablet,delayed 20 mg PO DAILY 90 days #90 tabs 02/13/24 release escitalopram oxalate 10 mg tablet 10 mg PO DAILY 90 days #90 tabs 08/20/24 Allergies Allergy/AdvReac Type Severity Reaction Status Date / Time amoxicillin [AMOXICILLIN] Allergy Unknown HIVES Verified 08/22/24 15:06 cinnamon [CINNAMON] Allergy Unknown tongue Verified 08/22/24 15:06 numbness lorazepam [From ATIVAN] Allergy Unknown UNKNOWN Verified 08/22/24 15:06 Review of Systems Review of Systems: low back pain Yes all other systems are reviewed and are negative PMFSH Past Medical History Medical History Pure hypercholesterolemia Lumbar pain Proteinuria Transaminitis Physical exam PHU (generalized anxiety disorder) Surgical History Tongue atrophy History of appendectomy Family History Family History (Updated 02/01/24 @ 16:47 by Samantha Trevino MD) Mother No problems noted. Father Mental health disorder Anxiety Social History Social History Housing: House Alcohol intake: former Patient Tobacco Use Status: Never used Tobacco e-Cigarette/Vaping Use: Never Used Second Hand Smoke Exposure: No Advance Directives: No Advance Directives Information Provided: No service: No Current occupational status: employed Current occupation: security/ rt hand Current occupational exposures/hazards: No Cognitive needs: No Hearing needs: No Vision needs: Yes Physical Exam ED Vital Signs: Vital Signs - 24 hr 08/22/24 15:06 Temperature 98.7 F Pulse Rate 103 H Respiratory Rate 18 Blood Pressure 131/81 Pulse Oximetry 100 Oxygen Delivery Method Room Air BMI result Body Mass Index 30.8 Const General: cooperative, healthy appearing, comfortable, no acute distress, well developed, alert, awake and Physically active Orientation/consciousness: patient oriented x3 [facility] Head: Yes normal to inspection, Yes No palpable skull fracture present, Yes normocephalic, Yes atraumatic and No abrasion Eyes General: appearance normal, both eyes and all related structures Neck Neck: Yes normal visual inspection, Yes full ROM, Yes no lymphadenopathy, Yes no meningeal signs, Yes trachea midline, Yes supple, No anterior neck swelling and No tender Chest Chest palpation & inspection: normal inspection of the chest and normal palpation of entire chest wall Resp Effort & Inspection: normal respiratory effort and able to speak in complete sentences Cardio Jugular venous distension: no JVD Heart sounds: S1 normal heart sound present and S2 normal heart sound present GI Inspection: Yes normal to inspection Palpation (GI): Soft to palpation, not firm, nontender, no guarding and not rigid General: Yes no CVA tenderness Back/Spine/Pelvis Back: no CVA tenderness and back tenderness (lumbar/sacrum tendenress) Skin General skin exam: no rashes or lesions noted, elasticity normal and turgor normal Neuro General: patient oriented x3, gait normal, tone normal, moves all extremities, Normal light touch and pain sensation, no meningeal signs, no focal motor deficits, CN's II-XI intact bilaterally and normal sensation to monofilament Extrem General: Yes normal to inspection, Yes full ROM and Yes capillary refill normal Psych Appearance: grossly normal, well kempt and not disheveled Medical Decision Making Medical Decision Making MDM Narrative: 29-year-old male presents to ED for low back pain that is worse on movement. Chest pain since the weekend. Patient states he was jumping with his daughter and trampoline and ever since then has pain. Patient denies any abdominal pain nausea, vomiting, flank pain, fever or chills. X-rays were normal. Patient has left before I could re-evaluate. Patient left before completing of treatment Differential Diagnosis Differential Diagnoses: The differential diagnosis associated with the presentation includes (Fracture sprain) Admission/Observation Consideration of admission/observation: Escalation of care including admission/observation considered Independent Interpretation I performed an independent interpretation of an: Plain X-Ray Radiology Impression Discussion of test interpretation with radiology: I have reviewed the radiologist's reading. Independent Historian Clinical information obtained from an independent historian. History obtained from or confirmed by: Other (Patient) Discharge Plan Discharge Clinical Impression: Back pain Patient Disposition: Left W/O Completing Treatment Prescriptions: No Action omeprazole 20 mg tablet,delayed release (DR/EC) 20 mg PO DAILY 90 Days Qty: 90 1RF escitalopram oxalate 10 mg tablet 10 mg PO DAILY 90 Days Qty: 90 1RF Discharge Date/Time: 08/22/24 17:10
== END 2024-08-22 17:10 | disposition left against medical advice (07) ==
LOC: HO.ED 17:09
PROVIDERS: Emergency Provider Emergency Medicine Emergency Medical Services; PCP Internal Medicine
DX: M54.50 Low back pain, unspecified (principal)
CPT/HCPCS: 72100; 72220; 99281; 99283

== ENCOUNTER → 2024-08-22 15:15 | Outpatient (BNV) | payer OTHER, SELFPAY | PROVIDERS: Emergency Provider Emergency Medicine Emergency Medical Services; PCP Internal Medicine; Visit Provider Radiology Diagnostic Radiology | DX: M54.50 Low back pain, unspecified (principal) | CPT/HCPCS: 72100; 72220 ==

== ENCOUNTER 2025-02-06 17:16 | Outpatient (AMB) | payer OTHER, SELFPAY ==
--- NOTE | 2025-02-06 17:19 | A.OFFPC_ITS ---
Vital Signs 02/06/25 17:20 Height 5 ft 9 in Weight 212 lb 4 oz BMI 31.3 BP 128/62 Blood Pressure Location Lt brachial Position Sitting Pulse 81 Pulse Source Pulse Oximeter Temp 97.3 F Temp Source Temporal Artery Scan Pulse Oximetry (%) 97 Oxygen Delivery Method Room Air Intake Visit Reasons: physical Intake Note: Patient is here today for a physical. Combat Engineer Required: No Hotel Receptionist: Present Accompanied by: Mother Allergies amoxicillin (AMOXICILLIN) Allergy (Unknown, Verified 02/06/25 17:38) HIVES cinnamon (CINNAMON) Allergy (Unknown, Verified 02/06/25 17:38) tongue numbness lorazepam (From ATIVAN) Allergy (Unknown, Verified 02/06/25 17:38) UNKNOWN Medication List - Last Reconciled 02/06/25 by Samantha Trevino MD escitalopram oxalate 10 mg PO DAILY 90 days omeprazole 20 mg PO DAILY 90 days Tobacco use date assessed: 02/06/25 Dental Screening Dental Screen Date: 02/06/25 Did you have a dental visit in the last 12 months?: Yes Did you have a dental problem in the last 6 months where you did not have access to dental care?: No Was dental information given to patient?: Patient has dentist HPI HPI Comments History of Present Illness Details This is a 30-year-old male that comes for his physical exam. Vaccines up-to-date. He does have history of transaminitis and fatty liver and sometimes complains of abdominal pain in the periumbilical area after eating. Will order ultrasound of the liver and labs. [facility] Medical History Pure hypercholesterolemia Lumbar pain Proteinuria Transaminitis Physical exam PHU (generalized anxiety disorder) Surgical History History of tooth extraction Tongue atrophy History of appendectomy Family History Mother No problems noted. Father Mental health disorder Anxiety Social History Housing: House Alcohol intake: former Patient Tobacco Use Status: Never used Tobacco e-Cigarette/Vaping Use: Never Used Second Hand Smoke Exposure: No service: No Current occupational status: employed Current occupation: security/ rt hand Current occupational exposures/hazards: No Cognitive needs: No Hearing needs: No Vision needs: Yes Questionnaire PHQ-9 Over the last 2 weeks, how often have you been bothered by any of the following problems? 1. Little interest or pleasure in doing things: not at all 2. Feeling down, depressed, or hopeless: not at all 3. Trouble falling or staying asleep, or sleeping too much: not at all 4. Feeling tired or having little energy: not at all 5. Poor appetite or overeating: not at all 6. Feeling bad about yourself - or that you are a failure or have let yourself or your family down: not at all 7. Trouble concentrating on things, such as reading the newspaper or watching television: not at all 8. Moving or speaking so slowly that other people could have noticed. Or the opposite - being so fidgety or restless that you have been moving around a lot more than usual: not at all 9. Thoughts that you would be better off or of hurting yourself in some way: not at all Total score: 0 Depression Screening Interpretation: Negative Depression Screening Done: Yes 10870 - PHQ-9 Billing: Yes Source: Developed by Drs. Kan Rodriguez, Belinda Frank, Yomi Aguila and colleagues, with an educational lana from [employer]. Thrive Questionnaire Date Thrive assessed: 02/06/25 I am a: Patient What is your living situation today?: I have a steady place to live Within the past 12 months, did the food you bought not last and you didn't have the money to get more?: Never true Within the past 12 months, did you worry whether your food would run out before you got money to buy more?: Never true Do you have trouble paying for medicines?: No Do you have trouble getting transportation to medical appointments?: No Do you have trouble paying your heating and electricity bill?: No Do you have trouble taking care of your child, family member or friend?: No Do you have trouble with day-to-day activities such as bathing, preparing meals, shopping, managing finances, etc.?: No Are you currently unemployed and looking for a job?: No Are you interested in more education?: No Please select the resources that you would like help with: None Currently or been in a relationship where the following occur: No concerns reported THRIVE Score: 0 AUDIT C Alcohol Use Questionnaire (AUDIT-C) 1. How often do you have a drink containing alcohol?: Never Total Score: 0 Score Reviewed/Action Taken: No PHU-7 AMB Questionnaire PHU-7 Date PHU - 7 assessed: 02/06/25 Feeling nervous, anxious, or on edge: 0 = Not at all Not being able to stop or control worryin = Not at all Worrying too much about different things: 0 = Not at all Trouble relaxin = Not at all Being so restless that it is hard to sit still: 0 = Not at all Becoming easily annoyed or irritable: 0 = Not at all Feeling afraid as if something awful might happen: 0 = Not at all Total PHU-7 score (0-4 normal; 5-9 mild; 10-14 moderate; 15-21 severe): 0 Source: Developed by Drs. Kan Rodriguez, Belinda Frank, Yomi Aguila and colleagues, with an educational lana from [employer]. PHU-7 Assessment Billing PHU-7 Assessment Tool: PHU-7 Assessment 39307 Review of Systems Const All systems reviewed & are unremarkable except as noted in HPI and below Card Denies chest pain at rest, Denies chest pain with activity, Denies edema, Denies irregular heart rhythm, Denies claudication, Denies dyspnea, Denies dyspnea on exertion, Denies orthopnea, Denies paroxysmal nocturnal dyspnea and Denies slow heart rate Resp Denies cough, Denies dyspnea and Denies dyspnea on exertion Physical exam (Primary Care) Vital Signs: Last Vital Signs Temp 97.3 F 02/06/25 17:20 Pulse 81 02/06/25 17:20 BP 128/62 02/06/25 17:20 Pulse Ox 97 02/06/25 17:20 Oxygen Delivery Method Room Air 02/06/25 17:20 BMI result Body Mass Index 31.3 BMI Assessment/Plan discussion: High BMI High, discussed plan: lifestyle, weight reduction, dietary and physical activity Tobacco/Smoking Status: Tobacco use Status Tobacco use date assessed 02/06/25 02/06/25 17:26 Patient Tobacco Use Status Never used Tobacco 02/06/25 17:26 e-Cigarette/Vaping Use Never Used 02/06/25 17:26 PHQ-9: PHQ-9 Score PHQ-9: Total score 0 02/06/25 17:40 Depression Screening Interpretation: Negative Thrive Assessment: Date of Thrive Assessment Date Thrive assessed 02/06/25 02/06/25 17:26 Currently or been in a relationship where the following occur: No concerns reported HENMT Head: Yes normal to inspection, Yes normocephalic and Yes atraumatic Ears: external ears normal Eyes General: appearance normal, both eyes and all related structures Eyelids: Yes eyelids normal Conjunctivae: conjunctivae normal Neck Neck: Yes normal visual inspection and Yes supple Resp Effort & Inspection: normal respiratory effort Auscultation: clear to auscultation bilaterally Cardio Jugular venous distension: no JVD Rate: regular rate Rhythm: regular rhythm Heart sounds: S1 normal heart sound present and S2 normal heart sound present GI Inspection: Yes normal to inspection Palpation (GI): Soft to palpation and nontender Auscultation: normal bowel sounds Skin General skin exam: no rashes or lesions noted Neuro General: no focal motor deficits Extrem General: Yes full ROM Psych Appearance: grossly normal Coding Level of Care Code Est Pt Level 3 (76426) Est Pt Prev Care 18-39y(52327) Diagnoses Physical exam Z00.00 Transaminitis R74.01 Additional Codes PHU-7 Assessment Billing - PHU-7 Assessment Tool: PHU-7 Assessment 54129 ([id number]) PHQ-9 - 59694 - PHQ-9 Billing: Yes ([id number]) Time Spent (min) 32 Assessment & Plan Assessment & Plan (1) Physical exam: Code(s): Z00.00 - Encounter for general adult medical examination without abnormal findings Category: Medical (2) Transaminitis: Comment: Baseline Laboratory Tests 09/11/21 Estimated GFR > 60 Ferritin 78 Total Bilirubin 0.7 Direct Bilirubin 0.3 GGT 34 AST 18 ALT 41 H Alkaline Phosphatase 73 Amylase 75 Lipase 47 Alpha Fetoprotein 2.8 SAMANTHA Screen NEGATIVE Anti-Mitochondrial Ab NEGATIVE Anti-Smooth Muscle Ab <20 Tiss Transglutamin IgG <1.0 Tiss Transglutamin IgA <1.0 Anti-Gliadin IgG Ab <1.0 Gliadin (Deamidat) IgA 2.3 EBV Capsid Ag IgG Ab 192.00 H EBV Capsid Ag IgM Index <36.00 EBV Nuclear Ag IgG Indx 385.00 H Hepatitis A IgM Ab Nonreactive Hep Bs Antigen Negative Hep Bs Antibody NONREACTIVE Hep B Core Total Ab Nonreactive Hepatitis C Ab (EIA) Nonreactive US WITH ELASTOGRAP(F0-F1) CURRENT LABS US OF ABD 07/2021 IMPRESSION: 1. Impression: Normal-appearing liver. Limited visualization of the pancreas. 2. Liver elastography: Limited due to sampling error. Code(s): R74.01 - Elevation of levels of liver transaminase levels Category: Medical Plan Repeat physical exam in a year. Ultrasound of the liver order as well as labs. Orders: Orders Comprehensive [place]. Panel Fast Today Z00.00 - Encounter for general adult medical examination without abnormal findings US abdomen espinoza w elastography Today R74.01 - Elevation of levels of liver transaminase levels Lipid Panel Today E78.5 - Hyperlipidemia, unspecified, Z00.00 - Encounter for general adult medical examination without abnormal findings Medications: Refilled omeprazole 20 mg PO DAILY 90 tabs 1RF 90 days escitalopram oxalate 10 mg PO DAILY 90 tabs 1RF 90 days F41.1 - Generalized anxiety disorder
[2025-02-06 17:20] VITALS: BP 128/62; PULSE 81; TEMP 36.3; O2SAT 97; BMI 31.3
== END 2025-02-06 17:51 | disposition home or self-care (01) ==
PROVIDERS: PCP Internal Medicine; Visit Provider Internal Medicine
DX: Z00.00 Encounter for general adult medical examination without abnormal findings (principal); R74.01 Elevation of levels of liver transaminase levels

== ENCOUNTER → 2025-02-06 17:16 | Outpatient (BNVA) | payer SELFPAY | PROVIDERS: PCP Internal Medicine; Visit Provider Internal Medicine | DX: Z00.00 Encounter for general adult medical examination without abnormal findings (principal); R74.01 Elevation of levels of liver transaminase levels; Z13.31 Encounter for screening for depression; Z13.39 Encounter for screening examination for other mental health and behavioral disorders | CPT/HCPCS: 96127; 99395 ==